=== PATIENT | male | born 1990 | race Hispanic/Latino ===

== ENCOUNTER 2024-03-07 09:42 | Emergency (ER) | payer BC ==
[~2024-03-07] VITALS: Ht 182.9 cm; Wt 87.5 kg
[2024-03-07 09:45] VITALS: PULSE 84; RESP 18; TEMP 98.9
[2024-03-07] MEDS ORDERED: SODIUM CHLORIDE 0.9% 1000ML 1,000 ML ONE (10:32)
[2024-03-07] MEDS: SODIUM CHLORIDE 0.9% 1000ML 1,000 ML IV STA (12:07)
[2024-03-07] MEDS: ONDANSETRON HCL INJ 2MG/ML 2ML 2 MG/ML VIAL IV STA (12:08)
[2024-03-07 12:23] VITALS: BP 121/64; PULSE 71; RESP 18; TEMP 98; O2SAT 98
== END 2024-03-07 11:57 | disposition home or self-care (01) ==
LOC: FSED 10:01 → ER 11:57
DX: R42 Dizziness and giddiness (principal); E11.65 Type 2 diabetes mellitus with hyperglycemia; R53.83 Other fatigue; F19.10 Other psychoactive substance abuse, uncomplicated; K21.9 Gastro-esophageal reflux disease without esophagitis; F90.9 Attention-deficit hyperactivity disorder, unspecified type; Z85.47 Personal history of malignant neoplasm of testis
CPT/HCPCS: 99284; J2405; J7030

== ENCOUNTER 2025-05-06 10:48 | Emergency (ER) | payer BC, OTHER ==
[~2025-05-06] VITALS: Ht 182.9 cm; Wt 95.3 kg
[2025-05-06 11:36] VITALS: PULSE 82; RESP 16; TEMP 97.9
[2025-05-06] MEDS: HYDROCODONE/APAP 5MG-325MG TAB PO ONE (11:44)
[2025-05-06] MEDS ORDERED: HYDROCODON-ACE1 EA12 PO (17:12)
[2025-05-06 17:45] VITALS: BP 120/88; PULSE 84; RESP 16; TEMP 98.4; O2SAT 100
== END 2025-05-06 17:51 | disposition home or self-care (01) ==
LOC: ER 11:38
DX: S92.002A Unspecified fracture of left calcaneus, initial encounter for closed fracture (principal); X50.1XXA Overexertion from prolonged static or awkward postures, initial encounter; Y92.89 Other specified places as the place of occurrence of the external cause; E11.9 Type 2 diabetes mellitus without complications; K21.9 Gastro-esophageal reflux disease without esophagitis; F90.9 Attention-deficit hyperactivity disorder, unspecified type
CPT/HCPCS: 99284